=== PATIENT | female | born 1955 | race Caucasian/White ===

== ENCOUNTER → 2016-05-12 | Outpatient (CLI) | payer BC ==
[~2016-05-12] MED LIST: ASMANEX HFA13 GM IH; LIPITOR10 MG PO; MOTRIN800 MG PO; PRINZIDE 20-121 EACH PO; ZESTORETIC 20-1 EAC1 NG
== END | disposition home or self-care (01) ==
DX: M17.12 Unilateral primary osteoarthritis, left knee (principal); M25.562 Pain in left knee; M25.662 Stiffness of left knee, not elsewhere classified; R26.2 Difficulty in walking, not elsewhere classified; M62.89 Other specified disorders of muscle
CPT/HCPCS: 97110 GP; 97150 GO; 97161 GP; 97165 GO

== ENCOUNTER 2016-06-08 06:57 | Inpatient (IN) | payer BC ==
[~2016-06-08] VITALS: Ht 165.1 cm; Wt 140.6 kg
[~2016-06-08 06:57] MED LIST changes: +CALCIUM +D PO; +LEVO-T150 MCG PO; +PROAIR HFA8.5 GM IH; +VITAMIN D35000 UNIT PO
[2016-06-08 08:15] VITALS: BP 113/73
[2016-06-08 12:57] LABS: MCH 35.3 PG (29.0-34.0); MCHC 35.7 G/DL (30.0-36.0); MCV 98.8 FL (83-99); MEAN PLAT.VOLUME 9.5 uM^3 (9.5-12.4); PLATELET COUNT 222 K/uL (156-360); RBC DIS.WIDTH-CV 12.8 % (11.8-14.6); RBC DIS.WIDTH-SD 46.4 % (39-53); RED BLOOD COUNT 4.25 M/uL (3.80-5.20); WHITE BLOOD COUNT 5.6 K/uL (4.1-10.2)
[2016-06-08 15:50] VITALS: BP 132/57
[2016-06-09 00:08] VITALS: BP 112/62
[2016-06-09 03:51] VITALS: BP 113/79
[2016-06-09 06:30] LABS: HEMATOCRIT 39.4 % (36.0-46.0)
[2016-06-09 06:57] LABS: ANION GAP 10 MEQ/L (2-14); CHLORIDE 95 MEQ/L (99-109); GFR ESTIMATE (CALCULATED) > 59 mL/min/; GLUCOSE 118 mg/dL (70-99); POTASSIUM 4.3 MEQ/L (3.7-5.4); SAMPLE HEMOLYSIS CHECK 0; SAMPLE ICTERIC CHECK 0; SAMPLE LIPEMIA CHECK 0; SODIUM 131 MEQ/L (136-147); UREA NITROGEN (BUN) 22 mg/dL (9-23)
[2016-06-09 12:00] VITALS: BP 109/67
[2016-06-09 16:29] VITALS: BP 145/74
[2016-06-09 19:50] VITALS: BP 134/68
[2016-06-10 00:15] VITALS: BP 101/49
[2016-06-10 04:23] VITALS: BP 105/57
[2016-06-10 05:29] LABS: HEMATOCRIT 37.9 % (36.0-46.0); MCV 95.7 FL (83-99)
[2016-06-10 08:00] VITALS: BP 100/53
[2016-06-10] MEDS ORDERED: SENNA PLUS TAB1 EACH PO (08:24)
[2016-06-10] MEDS ORDERED: LOVENOX40 MG/0.4 SC ×2 (08:25→08:32)
[2016-06-10] MEDS ORDERED: ENDOCET 5-3251 EACH PO (08:25)
[2016-06-10 12:02] VITALS: BP 93/52
[2016-06-10 15:54] VITALS: BP 96/58
[2016-06-10 20:15] VITALS: BP 127/61
[2016-06-11 00:07] VITALS: BP 104/73
[2016-06-11 04:09] VITALS: BP 96/54
[2016-06-11 08:00] VITALS: BP 92/58
[2016-06-11 12:21] VITALS: BP 110/62
[2016-06-11 16:43] VITALS: BP 129/55
[2016-06-11 18:02] VITALS: BP 114/56
[2016-06-12 00:19] VITALS: BP 132/68
[2016-06-12 08:03] VITALS: BP 109/61
== END 2016-06-12 11:10 | disposition home or self-care (01) | DRG 470 ==
LOC: 2SOUTH 06:57 → 3WEST 06:57 → 2SOUTH 08:54 → 3WEST 15:13 → 2SOUTH 15:34 → EDSTATUS 15:39 → SDC 15:39 → 2SOUTH 15:43 → 3WEST 06-11 14:09 → 3EAST 06-11 17:50
PROVIDERS: Orthopaedic Surgery
PROC: 0SRD0J9 Replacement of Left Knee Joint with Synthetic Substitute, Cemented, Open Approach (ICD-10-PCS; principal; 2016-06-08)
DX: M17.9 Osteoarthritis of knee, unspecified (principal); J45.909 Unspecified asthma, uncomplicated; I10 Essential (primary) hypertension; E03.9 Hypothyroidism, unspecified; Z88.2 Allergy status to sulfonamides; Z88.0 Allergy status to penicillin
CPT/HCPCS: 73560; 80048; 85014; 85018; 85027; 93971; J1100; J1170; J1200; J1650; J2175; J2250; J2405; J3010; J7050